=== PATIENT | female | born 1955 | race Caucasian/White ===

== ENCOUNTER 2016-11-19 18:34 | Emergency (ER) | payer MEDICAID ==
[~2016-11-19] VITALS: Ht 162.6 cm; Wt 68.0 kg
[2016-11-19 19:05] VITALS: BP 149/94; PULSE 69; RESP 18; TEMP 97; O2SAT 96
--- NOTE | 2016-11-19 19:05 | NUR ---
Patient triaged and placed in waiting room. VSS and patient appears in no acute distress at this time. Accompanied by self, awaiting available bed, and MD notified of need for MSE.
--- NOTE | 2016-11-19 20:53 | NUR ---
Placed in room H1 . Report given to INDU Felton.
--- NOTE | 2016-11-19 20:54 | NUR ---
Patient AAO x4, sitting in chair c/o right foot swelling and sharp pain to arch and ball of foot 01/01. Patient denies chest pain, denies shortness of breath, no acute distress noted. Ice pack provided. Will continue to monitor.
--- NOTE | 2016-11-19 21:40 | NUR ---
ER at bedside examining patient.
[2016-11-19 23:43] VITALS: BP 128/76; PULSE 65; RESP 18; TEMP 97; O2SAT 96
--- NOTE | 2016-11-19 23:43 | NUR ---
Patient given written and verbal discharge instructions and verbalizes understanding. ER MD discussed with patient the results and treatment provided. Patient in stable condition. ID arm band removed. Rx of Prednisone given. Patient educated on pain management and to follow up with PMD. Pain Scale 0/10. Opportunity for questions provided and answered.
== END 2016-11-19 23:43 | disposition home or self-care (01) ==
LOC: SED 18:34
DX: M19.071 Primary osteoarthritis, right ankle and foot (principal)
CPT/HCPCS: 36415; 73700-TC; 81025; 84550-TC; 99285

== ENCOUNTER 2018-10-11 17:18 | Emergency (ER) | payer MEDICAID ==
[~2018-10-11] VITALS: Ht 162.6 cm; Wt 72.6 kg
[2018-10-11 17:20] VITALS: BP_SYST 149
--- NOTE | 2018-10-11 17:20 | NUR ---
BROUGHT BACK TO BED #2 VIA WHEELCHAIR AND TRIAGED. REPORT GIVEN TO NATHALIE
--- NOTE | 2018-10-11 17:40 | NUR ---
Patient to ER via triage for evaluation of right sided lower back pain x 3 days, patient reports pain radiates down her leg. Patient is awake, alert and oriented in no acute distress, vital signs stable, respirations even and unlabored, skin warm and dry to touch. Patient able to ambulate without difficulty with slow, steady gait to bed 2. Awaiting evaluation by ER MD/PA, will continue to observe and assess. Denies any known trauma/injury, will continue to observe and assess.
--- NOTE | 2018-10-11 17:55 | NUR ---
Agata Sanz PA-C at bedside to evaluate patient.
[2018-10-11] MEDS ORDERED: IBUPROFEN 600 MG TABLET PO ONE (18:00)
[2018-10-11 18:55] VITALS: BP_SYST 136
--- NOTE | 2018-10-11 18:55 | NUR ---
Patient given written and verbal discharge instructions and verbalizes understanding. ER MD discussed with patient the results and treatment provided. Patient in stable condition. ID arm band removed. Rx of Naproxen given. Patient educated on pain management and to follow up with PMD. Pain Scale 0. Opportunity for questions provided and answered. Medication side effect fact sheet provided. Patient left ER in no acute distress, able to ambulate without difficulty with slow, steady gait. No adverse reaction noted to medication.
== END 2018-10-11 18:55 | disposition home or self-care (01) ==
LOC: SED 17:18
DX: M76.32 Iliotibial band syndrome, left leg (principal); Z87.442 Personal history of urinary calculi
CPT/HCPCS: 73502; 99283